=== PATIENT | male | born 1960 | race Caucasian/White ===

== ENCOUNTER 2017-07-06 09:17 | Day surgery (SDC) | payer OTHER ==
[~2017-07-06] VITALS: Ht 175.3 cm; Wt 84.4 kg
[2017-07-06] MEDS ORDERED: BUPIVACAINE-MPF 0.25% 30 ML VIAL INJ ONE (12:06)
[2017-07-06] MEDS ORDERED: KETOROLAC 30 MG/ML VIAL ONE (12:08)
[2017-07-06] MEDS ORDERED: LIDOCAINE 1% 50 ML ONE (12:13)
[2017-07-06] MEDS ORDERED: LIDOCAINE 1% 500 MG/50 ML VIAL INJ ONE (12:24)
[2017-07-06] MEDS ORDERED: NEOMYCIN/POLYMYXIN/BACITRACIN OIN 15 GM TUBE TP ONE (13:01)
[2017-07-06] MEDS ORDERED: HYDROmorphone 1 MG/ML AMP IVP PRN (13:05)
[2017-07-06] MEDS ORDERED: MORPHINE SULFATE 4 MG/ML SYR IV PRN (13:05)
[2017-07-06] MEDS ORDERED: ONDANSETRON 4 MG/2 ML VIAL IV PRN (13:05)
[2017-07-06] MEDS ORDERED: HYDROcodone/APAP 5/325 MG 1 TAB TAB PO PRN (13:05)
[2017-07-06] MEDS ORDERED: ACETAMINOPHEN 325 MG TAB PO PRN (13:05)
== END 2017-07-06 13:13 | disposition home or self-care (01) ==
LOC: MDS 09:17 → MMU 09:18 → MDS 13:13
PROVIDERS: ATTEND Surgery
DX: L72.3 Sebaceous cyst (principal); K43.2 Incisional hernia without obstruction or gangrene; Z98.890 Other specified postprocedural states; Z79.899 Other long term (current) drug therapy
CPT/HCPCS: 11441; 11442; 12051; 71010; 88304; 93005; J0690; J1885; J2001; J3490; J7060; J7120